=== PATIENT | female | born 1990 | race Caucasian/White ===

== ENCOUNTER → 2016-03-08 | Outpatient (CLI) | payer BC ==
[~2016-03-08] MED LIST: HYDR-5688 PO; NORE1CHW2 PO; OXYC-57 PO; PANT40TA PO; PRENTAB26 PO
[2016-03-08 17:41] LABS: HEMATOCRIT 32.3 % (37-47)
[2016-03-08 18:39] LABS: URINE APPEARANCE CLEAR (CLEAR); URINE BILIRUBIN NEG (NEG); URINE COLOR YELLOW; URINE NITRITE NEG (NEG); UROBILINOGEN NEG (NEG)
[2016-03-08 18:43] LABS: GTGD 50 Grams
[2016-03-08 18:44] LABS: MANUAL MICROSCOPIC REQUIRED? NO; REVIEW REQ? NO
== END | disposition home or self-care (01) ==
LOC: C.LAB1850 16:51
PROVIDERS: ATTEND Obstetrics & Gynecology
DX: O09.293 Supervision of pregnancy with other poor reproductive or obstetric history, third trimester (principal)

== ENCOUNTER 2016-03-19 22:52 | Emergency (ER) | payer BC ==
[~2016-03-19] VITALS: Ht 170.2 cm; Wt 114.1 kg
[~2016-03-19 22:52] MED LIST changes: -HYDR-5688 PO; -NORE1CHW2 PO; -OXYC-57 PO; -PANT40TA PO
[2016-03-19 23:05] VITALS: TEMP 36.8; Ht 170.2 cm; Wt 114.1 kg
[2016-03-19 23:46] LABS: BASO % 0.1 %; BASO ABS # 0.01 K/uL (0-0.2); COMPLETE YES; EOS % 1.4 %; HEMATOCRIT 32.9 % (37-47); IG% 0.9 %; LYMPH % 20.3 %; LYMPH ABS # 1.72 K/uL (1.2-3.4); MEAN CORPUSCULAR HEMOGLOBIN 29.9 pg (25-34); MEAN CORPUSCULAR HGB CONC 34.3 g/dl (32-36); MEAN PLATELET VOLUME 8.8 fL (7.4-10.4); MONO % 8.1 %; NEUT % 69.2 %; PLATELET COUNT 276 K/uL (130-400); RED BLOOD COUNT 3.78 M/uL (4.2-5.4); WHITE BLOOD COUNT 8.49 K/uL (4.8-10.8)
--- NOTE | 2016-03-19 23:53 | EMERGENCY ROOM VISIT NOTE ---
History Report prepared by Michael: Aisha Murcia Under the Supervision of: Dr. Mary Triana D.O. First contact with patient: 23:20 Chief Complaint: FLANK PAIN Stated Complaint: RT SIDED ABD PAIN,30 WKS PREG History of Present Illness The patient is a 25 year old female who presents to the Emergency Room with complaints of constant flank pain beginning last night. The patient states that she is 30 weeks and has experienced this flank pain before off and on but she thought that it was due to the position that the baby was in. She reports that this is her first and she has miscarried once before at 6 weeks. Patient is . She states that she has been seen here in the ED for this pain before and was told that it could be from growing pains and they did not find anything. She complains of nausea when the pain gets bad, pain below her right rib, and slight back pain. She denies urinary symptoms, bowel issues, vomiting, and fever. She notes that the baby's movement has been normal. She rates her pain as a 5/10 now but it was an 8/10 before she came in to the ED. The patient states that she had a glucose test done today but does not have the results yet. Source of History: patient Onset: last night Position: other (flank) Timing: constant Associated Symptoms: + back pain, + nausea, No fevers, No urinary symptoms, No vomiting Note: She complains of pain below her right rib. She denies bowel issues. Review of Systems See HPI for pertinent positives & negatives. A total of 10 systems reviewed and were otherwise negative. Past Medical & Surgical Medical Problems: (1) Miscarriage Family History No pertinent family history stated. Social History Smoking Status: Never Smoker Drug Use: none Marital Status: Housing Status: lives with family Current/Historical Medications Scheduled Multivit/Min/Iron/Fol Ac/Pren ( Vitamin), 1 TAB PO DAILY Allergies Coded Allergies: Amoxicillin (Verified Allergy, Unknown, rash, 03/19/16) Physical Exam Vital Signs Date Time Temp Pulse Resp B/P Pulse Ox O2 Delivery O2 Flow Rate FiO2 03/20/16 01:40 80 18 118/62 99 03/20/16 00:31 87 18 117/87 97 Room Air 03/19/16 23:05 36.8 105 20 147/87 97 Room Air Physical Exam HEENT: Head - normocephalic and atraumatic Pupils are equal, round, and reactive to light. Extraocular eye muscles are intact, and sclera are anicteric. Nose - moist nasal mucosa without discharge. Mouth - moist buccal mucosa. Oropharynx is nonerythematous and there is no tonsillar exudate or edema noted. Neck: Supple; no JVD, nuchal rigidity, cervical lymphadenopathy. Heart: Regular rate and rhythm. There is a normal S1 and S2 with no murmurs, clicks, or gallops appreciated. Lungs: Clear to auscultation bilaterally with no wheezes, rales, or rhonchi. Abdomen: Gravid, completely nontender, with good bowel sounds. There are no palpable pulsatile masses or hepatosplenomegaly. There is no guarding, rigidity , or rebound noted. Back: No CVA tenderness, no flank tenderness. Extremities: No evidence of cyanosis, clubbing, or edema. There are easily palpable peripheral pulses. Skin: warm and dry with good turgor and no rashes. Medical Decision & Procedures Laboratory Results 03/19/16 23:29 Red Blood Count 3.78, Mean Corpuscular Volume 87.0, Mean Corpuscular Hemoglobin 29.9, Mean Corpuscular Hemoglobin Concent 34.3, Mean Platelet Volume 8.8, Neutrophils (%) (Auto) 69.2, Lymphocytes (%) (Auto) 20.3, Monocytes (%) (Auto) 8.1, Eosinophils (%) (Auto) 1.4, Basophils (%) (Auto) 0.1, Neutrophils # (Auto) 5.87, Lymphocytes # (Auto) 1.72, Monocytes # (Auto) 0.69, Eosinophils # (Auto) 0.12, Basophils # (Auto) 0.01 03/19/16 23:29 Test 03/19/16 23:29 03/19/16 23:30 White Blood Count 8.49 K/uL (4.8-10.8) Red Blood Count 3.78 M/uL (4.2-5.4) Hemoglobin 11.3 g/dL (12.0-16.0) Hematocrit 32.9 % (37-47) Mean Corpuscular Volume 87.0 fL (80-100) Mean Corpuscular Hemoglobin 29.9 pg (25-34) Mean Corpuscular Hemoglobin Concent 34.3 g/dl (32-36) Platelet Count 276 K/uL (130-400) Mean Platelet Volume 8.8 fL (7.4-10.4) Neutrophils (%) (Auto) 69.2 % Lymphocytes (%) (Auto) 20.3 % Monocytes (%) (Auto) 8.1 % Eosinophils (%) (Auto) 1.4 % Basophils (%) (Auto) 0.1 % Neutrophils # (Auto) 5.87 K/uL (1.4-6.5) Lymphocytes # (Auto) 1.72 K/uL (1.2-3.4) Monocytes # (Auto) 0.69 K/uL (0.11-0.59) Eosinophils # (Auto) 0.12 K/uL (0-0.5) Basophils # (Auto) 0.01 K/uL (0-0.2) RDW Standard Deviation 43.4 fL (36.4-46.3) RDW Coefficient of Variation 13.7 % (11.5-14.5) Immature Granulocyte % (Auto) 0.9 % Immature Granulocyte # (Auto) 0.08 K/uL (0.00-0.02) Anion Gap 11.0 mmol/L (3-11) Est Creatinine Clear Calc Drug Dose 158.8 ml/min Estimated GFR () 138.6 Estimated GFR (Non- 119.6 BUN/Creatinine Ratio 10.5 (10-20) Calcium Level 9.1 mg/dl (8.5-10.1) Total Bilirubin 0.1 mg/dl (0.2-1) Direct Bilirubin < 0.1 mg/dl (0-0.2) Aspartate Amino Transf (AST/SGOT) 9 U/L (15-37) Alanine Aminotransferase (ALT/SGPT) 17 U/L (12-78) Alkaline Phosphatase 72 U/L (45-117) Total Protein 6.9 gm/dl (6.4-8.2) Albumin 3.0 gm/dl (3.4-5.0) Lipase 120 U/L (73-393) Urine Color YELLOW Urine Appearance CLEAR (CLEAR) Urine pH 6.5 (4.5-7.5) Urine Specific [place] 1.002 (1.000-1.030) Urine Protein NEG (NEG) Urine Glucose (UA) NEG (NEG) Urine Ketones NEG (NEG) Urine Occult Blood NEG (NEG) Urine Nitrite NEG (NEG) Urine Bilirubin NEG (NEG) Urine Urobilinogen NEG (NEG) Urine Leukocyte Esterase TRACE (NEG) Urine WBC (Auto) 10-30 /hpf (0-5) Urine RBC (Auto) 0-4 /hpf (0-4) Urine Hyaline Casts (Auto) 1-5 /lpf (0-5) Urine Epithelial Cells (Auto) 10-20 /lpf (0-5) Urine Bacteria (Auto) 2+ (NEG) Laboratory results per my review. Medications Administered Medications (Trade) Dose Ordered Sig/[place]inton Route Start Time Stop Time Status Last Admin Dose Admin Acetaminophen (Tylenol Tab) 1,000 mg NOW STAT PO 03/20/16 00:49 03/20/16 00:50 DC 03/20/16 00:53 1,000 MG Procedure 0049: Tylenol Tab 1000mg PO. ED Course 2320: Past medical records reviewed. The patient was evaluated in room B10. A complete history and physical exam was performed. 2339: heart tones of 134. 0045: I reevaluated the patient. Her pain is exactly the same as it was when she came in here. I gave her a dose of Tylenol. I sent her urine for culture and will reevaluate her in a half an hour. 0049: Tylenol Tab 1000mg PO. 0028: I reevaluated the patient. She is feeling better. 0034: Upon reevaluation, the patient is hemodynamically stable. I discussed findings and results with the patient. She verbalized agreement of the treatment plan. The patient was discharged home. Medical Decision The patient is a 25 year old female who presents to the ED with flank pain. Differential diagnosis includes gallbladder disease, pyelonephritis, ureteral colic, flank pain, contractions. LABS: Urinalysis has trace leukocyte esterase, 10-30 WBC, 10-20 epithelial cells, 2+ bacteria Normal renal function Normal LFT and lipase Glucose 97 Mild anemia with hemoglobin of 11.3 Normal WBC This is a 25-year-old female patient who is 30 weeks . She presents to the ER with right-sided flank pain. She describes previous history similar to this in the past. She became more concerned tonight because the pain was unrelenting and seemed to be getting worse. Upon arrival in the emergency department, the patient's pain had come down significantly. She describes having a previous ultrasound of her gallbladder for similar symptoms. This was negative. Patient does have some white blood cells and bacteria in the urine but she has no urinary symptoms. There is no blood suggest a kidney stone. The urine will be sent for culture. Patient is comfortable at this time I'll be discharged home to follow up with OB tomorrow. The patient is feeling the baby move around as usual. Impression Primary Impression: Right flank pain Additional Impression: Third trimester Scribe Attestation The scribe's documentation has been prepared under my direction and personally reviewed by me in its entirety. I confirm that the note above accurately reflects all work, treatment, procedures, and medical decision making performed by me. Departure Information Dispostion Home / Self-Care Referrals No Doctor, Assigned (PCP) Forms HOME CARE DOCUMENTATION FORM, IMPORTANT VISIT INFORMATION Patient Instructions ED Flank Pain Uncertain Cause, [facility] Additional Instructions Rest. Take tylenol for pain. Follow up with OB later today or at appt. on Problem Qualifiers
[2016-03-20 00:09] LABS: ALT/SGPT 17 U/L (12-78); AST/SGOT 9 U/L (15-37); BLOOD UREA NITROGEN 7 mg/dl (7-18); BUN/CREATININE RATIO 10.5 (10-20); CALCIUM 9.1 mg/dl (8.5-10.1); CARBON DIOXIDE 23 mmol/L (21-32); CHLORIDE 107 mmol/L (98-107); GLUCOSE 97 mg/dl (70-99); POTASSIUM 3.7 mmol/L (3.5-5.1); SODIUM 141 mmol/L (136-145)
[2016-03-20 00:11] LABS: MANUAL MICROSCOPIC REQUIRED? NO; REVIEW REQ? YES; URINE APPEARANCE CLEAR (CLEAR); URINE BILIRUBIN NEG (NEG); URINE COLOR YELLOW; URINE NITRITE NEG (NEG); URINE PH 6.5 (4.5-7.5); URINE SPECIFIC GRAVITY 1.002 (1.000-1.030); UROBILINOGEN NEG (NEG)
[2016-03-20 00:11] LABS: ALKALINE PHOSPHATASE 72 U/L (45-117)
[2016-03-20] MEDS ORDERED: ACETAMINOPHEN 500 MG TAB PO STA (00:49)
[2016-03-20 01:40] VITALS: BP 118/62; PULSE 80; O2SAT 99
[2016-08-14] MEDS ORDERED: NORE1CHW2 PO (13:50)
== END 2016-03-20 01:43 | disposition home or self-care (01) ==
LOC: C.EDB 22:53
DX: O99.89 Other specified diseases and conditions complicating pregnancy, childbirth and the puerperium (principal); R10.9 Unspecified abdominal pain; Z3A.30 30 weeks gestation of pregnancy; Z88.0 Allergy status to penicillin

== ENCOUNTER → 2016-05-03 | Outpatient (CLI) | payer BC ==
[~2016-05-03] MED LIST changes: +HYDR-5688 PO; +NORE1CHW2 PO; +OXYC-57 PO; +PANT40TA PO
== END | disposition home or self-care (01) ==
LOC: C.LABSPEC 17:24
PROVIDERS: ATTEND Obstetrics & Gynecology
DX: Z34.03 Encounter for supervision of normal first pregnancy, third trimester (principal)

== ENCOUNTER 2016-05-16 08:06 | Outpatient (CLI) | payer BC ==
[~2016-05-16] VITALS: Ht 170.2 cm; Wt 113.6 kg
[~2016-05-16 08:06] MED LIST changes: -HYDR-5688 PO; -NORE1CHW2 PO; -OXYC-57 PO; -PANT40TA PO
[2016-05-16 09:33] VITALS: Ht 170.2 cm; Wt 113.6 kg
[2016-08-14] MEDS ORDERED: NORE1CHW2 PO (13:50)
== END 2016-05-16 10:00 | disposition home or self-care (01) ==
LOC: C.OPB 08:06 → C.LD 08:06 → C.OPB 10:00
PROVIDERS: ATTEND Obstetrics & Gynecology
DX: O32.1XX0 Maternal care for breech presentation, not applicable or unspecified (principal); Z3A.38 38 weeks gestation of pregnancy

== ENCOUNTER 2016-05-25 05:20 | Inpatient (IN) | payer BC ==
[~2016-05-25] VITALS: Ht 170.2 cm; Wt 115.2 kg
[2016-05-25] VITALS (17 sets, daily range): BP systolic 112–143; BP diastolic 74–85; PULSE 84–96; TEMP 36.3–36.8; O2SAT 95–100; Ht 170.2 cm; Wt 115.2 kg
[2016-05-25] MEDS ORDERED: CLINDAMYCIN IV 900 MG in DEXTROSE 5% ADD-VANTAGE 100ML IV SCH (06:00)
[2016-05-25] MEDS: LACTATED RINGER'S 1000ML 1,000 ML IV SCH ×2 (06:09→06:56)
[2016-05-25] MEDS ORDERED: FENTANYL CITRATE INJ 50 MCG/1 ML 2 ML VIAL ONE (06:30)
[2016-05-25] MEDS ORDERED: PHENYLEPHRINE HCL INJ 10 MG/ML VIAL ONE (06:30)
[2016-05-25] MEDS ORDERED: ONDANSETRON INJ 2 MG/ML 2 ML VIAL ONE (06:30)
[2016-05-25] MEDS ORDERED: OXYTOCIN INJ 10 UNITS/ML VIAL ONE ×5 (06:30→08:14)
[2016-05-25] MEDS ORDERED: MoRPHine SULFATE PF 1 MG/ML 10 ML AMP/VIAL ONE (06:30)
[2016-05-25] MEDS ORDERED: EpHEDrine SULFATE INJ 50 MG/ML AMP ONE (06:30)
[2016-05-25] MEDS ORDERED: METOCLOPRAMIDE HCL INJ 5 MG/ML 2 ML VIAL ONE (06:30)
[2016-05-25 06:37] LABS: COMPLETE YES; EOS % 0.9 %; HEMATOCRIT 32.8 % (37-47); IG% 0.8 %; LYMPH % 18.8 %; LYMPH ABS # 1.66 K/uL (1.2-3.4); MEAN CORPUSCULAR HGB CONC 34.5 g/dl (32-36); MEAN PLATELET VOLUME 9.3 fL (7.4-10.4); MONO % 8.8 %; NEUT % 70.7 %; PLATELET COUNT 257 K/uL (130-400); RED BLOOD COUNT 3.77 M/uL (4.2-5.4); WHITE BLOOD COUNT 8.84 K/uL (4.8-10.8)
--- NOTE | 2016-05-25 07:26 | HISTORY & PHYSICAL EXAMINATION ---
DATE OF ADMISSION: 05/25/2016 PREOPERATIVE DIAGNOSIS: Vargas intrauterine in breech presentation. HISTORY OF PRESENT ILLNESS: This is a 25-year-old G2, P0-0-1-0, with the fetus confirmed in the breech presentation on ultrasound this morning, at 39+ weeks' gestation by an EDC of 05/28/2016. Her has been uncomplicated. ALLERGIES: AMOXICILLIN, CATS. CURRENT MEDICATIONS: tablets. OBSTETRIC HISTORY: One spontaneous in the first trimester in 06/2015. MEDICAL HISTORY: Depression for which she has previously taken Lexapro but is currently unmedicated and varicella in childhood. SURGICAL HISTORY: Drums tooth extraction. FAMILY HISTORY: Noncontributory, although of note the patient's mother informs me this morning that the patient herself was a breech delivery. PHYSICAL EXAMINATION: VITAL SIGNS: Reviewed and within normal limits this morning. heart tones 135, moderate variability, accels, and no decels. Cervix is unexamined this morning. [place] is quiet. GENERAL: Alert and in no acute distress. She is seated upright in bed, speaking fluently. HEART: Shows regular rate and rhythm. LUNGS: Clear to auscultation bilaterally. ABDOMEN: Gravid and nontender. EXTREMITIES: Have SCDs in place. ASSESSMENT AND PLAN: This is a 24-year-old G2, P0-0-1-0, for a prime section, anticipated to be low transverse due to breech presentation of fetus.
[2016-05-25] MEDS: CITRIC ACID/SODIUM CITRATE 15 ML UDC PO SCH ×2 (07:28→07:31)
[2016-05-25] MEDS ORDERED: LANOLIN OINT EXT PRN ×2 (08:45)
[2016-05-25] MEDS ORDERED: DIPHTHERIA/TETANUS/PERTUSSIS 0.5 ML SYR/VIAL IM. ONE (08:45)
[2016-05-25] MEDS ORDERED: BENZOCAINE 20% AER SPR 82.5 GM CAN EXT PRN (08:45)
[2016-05-25] MEDS ORDERED: SUPERCREAM 0.870 % 15GM JAR EXT PRN (08:45)
[2016-05-25] MEDS ORDERED: HYDROCORTISONE ACETATE 25 MG SUPP PR PRN (08:45)
--- NOTE | 2016-05-25 08:48 | [facility] Post Operative Brief Note ---
Immediate Operative Summary Operative Date May 25, 2016. Pre-Operative Diagnosis Breech Presentation; Vargas at Term Post-Operative Diagnosis Same Procedure(s) Performed Primary Caesarean Section; Delivery of a live male child at [address] Harrison Paraoptometric Surgeon(s) Dr. Kimbrough Estimated Blood Loss 600 cc Findings normal ovaries and tubes. Yuri breech presentation Specimens cord blood placenta-hold Complication(s) None Disposition L&D
[2016-05-25] MEDS: SIMETHICONE 80 MG CHEW PO SCH ×4 (09:00→20:13)
[2016-05-25] MEDS ORDERED: NALOXONE HCL INJ 1 MG in SODIUM CHLORIDE 0.9% 1000ML 1,000 ML IV PRN ×4 (09:20)
[2016-05-25] MEDS ORDERED: SODIUM CHLORIDE 0.9% 1000ML 1,000 ML IV PRN (09:20)
[2016-05-25] MEDS ORDERED: LACTATED RINGER'S 1000ML 500 ML IV PRN (09:20)
[2016-05-25] MEDS ORDERED: NALOXONE HCL INJ 0.08 MG in SYRINGE 1.8 ML IV PRN (09:20)
--- NOTE | 2016-05-25 09:29 | Anesthesiology Progress Note ---
Anesthesia Post Op Note Date & Time May 25, 2016 at 09:28 Notes Mental Status: alert / awake / arousable, participated in evaluation Pt Amnestic to Procedure: Yes Nausea / Vomiting: adequately controlled Pain: adequately controlled Airway Patency, RR, SpO2: stable & adequate BP & HR: stable & adequate Hydration State: stable & adequate Neuraxial Anesthesia: was administered Anesthetic Complications: no major complications apparent
[2016-05-25] MEDS ORDERED: DiphenhydrAMINE HCL 50 MG/ML VIAL IV PRN (09:30)
[2016-05-25] MEDS ORDERED: NALBUPHINE HCL INJ 10 MG/ML AMP IV PRN (09:30)
[2016-05-25] MEDS ORDERED: ATROPINE SULFATE 0.1 MG/ML 5ML SYR IV PRN (09:30)
[2016-05-25] MEDS ORDERED: NO NARCOTICS OR SEDATIVES SCH (09:30)
[2016-05-25] MEDS ORDERED: ONDANSETRON INJ 2 MG/ML 2 ML VIAL IV PRN ×2 (09:30)
[2016-05-25] MEDS ORDERED: PROMETHAZINE HCL INJ 25 MG in SODIUM CHLORIDE 0.9% 50ML 50 ML IV PRN (09:30)
[2016-05-25] MEDS ORDERED: EpHEDrine SULFATE INJ 50 MG/ML AMP IV PRN ×2 (09:30)
[2016-05-25] MEDS ORDERED: MEPERIDINE HCL 25 MG/ML CARP IV PRN ×2 (09:30)
[2016-05-25] MEDS ORDERED: NALOXONE HCL 0.4 MG/1 ML VIAL/CARP IV PRN (09:30)
[2016-05-25] MEDS ORDERED: METOCLOPRAMIDE HCL INJ 20 MG in SODIUM CHLORIDE 0.9% 50ML 50 ML IV PRN (09:30)
[2016-05-25] MEDS ORDERED: MoRPHine SULFATE PF 1 MG/ML 10 ML AMP/VIAL EPI PRN (09:30)
[2016-05-25] MEDS ORDERED: MoRPHine SULFATE 2 MG/ML CARP IV PRN (09:30)
[2016-05-25] MEDS: KETOROLAC TROMETHAMINE 30 MG/ML VIAL IV. PRN ×2 (10:18→16:54)
--- NOTE | 2016-05-25 11:59 | OPERATIVE REPORT ---
DATE OF OPERATION: 05/25/2016 PREOPERATIVE DIAGNOSIS: Vargas at term with ever breech presentation. POSTOPERATIVE DIAGNOSIS: Same. PROCEDURE: Primary low transverse section. SURGEON: Dr. Harrison. HOMICIDE INVESTIGATOR: PGY1. ESTIMATED BLOOD LOSS: 600 mL. FINDINGS: Normal ovaries and tubes and fetus in ever breech presentation. SPECIMENS: Cord blood and placenta for hold. COMPLICATIONS: None. DISPOSITION: Stable in labor and delivery. DESCRIPTION: Maryanne is a 25-year-old G2, P0-0-1-0, who presented as planned with a at 39+ weeks. She was confirmed to still be in ever breech presentation by ultrasound at the bedside. She was then moved to the operating room, where she was placed in supine position with a leftward tilt, prepped and draped in standard sterile fashion and a hard time-out was taken prior to proceeding. A Pfannenstiel incision was created. This was carried down sharply to the fascia, which was extended using Santana scissors. The fascia was sharply and bluntly dissected off the underlying rectus muscle. It was naturally in the midline and then the peritoneum was bluntly opened using the surgeon's fingers. Bladder blade was introduced. The lower uterine segment was examined and found to be well developed. A transverse incision was then made using a fresh scalpel with final entry to the uterus being made in a blunt manner. Clear fluid was encountered with what appeared to be freshly passed meconium also present at the anal orifice. The legs were delivered one at a time through the hysterotomy. The sacrum was delivered and rotated into an anterior position. The fetus was wrapped with a towel and then gently delivered to the shoulders at which the arms were swept in physiologic fashion and ultimately the was delivered with the head in flexion at all times. The infant was then placed on the sterile field while the cord was doubly clamped and cut. The was then taken to the warmer. The placenta delivered manually and was noted to be intact with a 3-vessel cord. The uterus was gently exteriorized and cleared of all clot and debris using a damp lap sponge. The Allis clamp was then used to identify the angles of the hysterotomy and it was repaired in 2-layer fashion using 0 Vicryl suture in a running locked manner with a second imbricating over layer. The uterus was then moved forward well. Irrigation was used to clear the posterior gutter. The ovaries and tubes were examined and there was noted to be adhesions to the left ovary, otherwise normal anatomy. Uterus was then gently re-internalized. Retractors were used to allow visualization and clearance of the lateral gutters of all clot and debris. The hysterotomy was examined one final time and found to be hemostatic and well approximated. The muscles were allowed to reapproximate and the fascia was then closed using 1-0 Vicryl in a running nonlocked manner. At the completion of which, the fascia was examined and found to be free of defect. Subcutaneous tissue was then copiously irrigated and the skin was closed using 4-0 Monocryl with a Dermabond dressing. The Lee was noted to be draining clear yellow urine and the patient was transferred back to her room to recover where she remains in stable condition. I attest to the content of the Intraoperative Record and any orders documented therein. Any exceptio ns are noted below.
[2016-05-25] MEDS: OXYTOCIN INJ 20 UNITS in LACTATED RINGER'S 1000ML 1,000 ML IV SCH ×2 (12:32→22:27)
[2016-05-25] MEDS: DOCUSATE SODIUM 100 MG CAP PO SCH (20:13)
[2016-05-26] VITALS (8 sets, daily range): BP systolic 113–123; BP diastolic 74–80; PULSE 70–92; TEMP 36.3–36.8; O2SAT 96–97
[2016-05-26] MEDS ORDERED: DC INTRASPINAL MORPHINE SCH (04:00)
[2016-05-26] MEDS ORDERED: OXYCODONE/ACETAMINOPHEN 5-325 TAB PO PRN (04:01)
[2016-05-26] MEDS ORDERED: ONDANSETRON INJ 2 MG/ML 2 ML VIAL IV PRN (04:01)
[2016-05-26] MEDS ORDERED: KETOROLAC TROMETHAMINE 30 MG/ML VIAL IV. PRN (04:01)
[2016-05-26] MEDS: IBUPROFEN 600 MG TAB PO PRN ×3 (04:19→19:43)
[2016-05-26] MEDS: OXYCODONE/ACETAMINOPHEN 5-325 TAB PO PRN ×3 (04:19→19:44)
[2016-05-26 06:38] LABS: COMPLETE YES; EOS % 0.6 %; HEMATOCRIT 30.2 % (37-47); IG% 0.3 %; LYMPH % 12.7 %; LYMPH ABS # 1.11 K/uL (1.2-3.4); MEAN CELL VOLUME 85.3 fL (80-100); MEAN CORPUSCULAR HEMOGLOBIN 29.1 pg (25-34); MEAN CORPUSCULAR HGB CONC 34.1 g/dl (32-36); MONO % 8.1 %; NEUT % 78.3 %; PLATELET COUNT 199 K/uL (130-400); RED BLOOD COUNT 3.54 M/uL (4.2-5.4); WHITE BLOOD COUNT 8.77 K/uL (4.8-10.8)
--- NOTE | 2016-05-26 07:04 | Progress Note ---
Subjective May 26, 2016. Subjective conversation w/ patient, physical exam Ambulation: ambulating normally Voiding: no voiding problems Passing Gas: Yes Diet Tolerance: Regular Diet Lochia: Small Feeding Type: Breast Feeding Review of Systems Constitutional: No chills, No fever Respiratory: No cough, No shortness of breath Cardiac: No chest pain, No claudication Objective Vital Signs Date Time Temp Pulse Resp B/P Pulse Ox O2 Delivery O2 Flow Rate FiO2 05/26/16 04:00 36.7 92 18 120/76 96 Room Air 05/26/16 04:00 18 96 05/26/16 03:01 18 96 05/26/16 02:00 18 96 05/26/16 01:00 18 97 05/26/16 00:20 18 96 05/25/16 23:20 96 Room Air 05/25/16 23:20 18 96 05/25/16 23:20 36.8 87 18 127/82 96 Room Air 05/25/16 22:30 16 97 05/25/16 21:30 18 96 05/25/16 20:30 20 98 05/25/16 19:30 36.5 84 18 128/76 Room Air 84 05/25/16 19:30 97 Room Air 05/25/16 19:30 18 97 05/25/16 18:41 18 96 05/25/16 18:00 20 97 05/25/16 17:00 18 96 05/25/16 16:00 18 97 05/25/16 15:00 36.5 96 20 126/81 98 Room Air 05/25/16 15:00 Room Air 05/25/16 15:00 20 98 05/25/16 14:00 20 95 05/25/16 13:50 36.5 88 18 121/77 98 Room Air 05/25/16 12:55 20 100 05/25/16 12:50 36.5 96 20 143/85 100 Room Air 05/25/16 12:00 18 98 05/25/16 12:00 36.3 90 18 124/77 98 Room Air 05/25/16 11:00 36.8 95 16 112/74 97 Room Air 05/25/16 11:00 16 97 05/25/16 10:50 96 Room Air 05/25/16 10:50 97 Room Air Physical Exam General Appearance: WELL-APPEARING, NO APPARENT DISTRESS Respiratory/Chest: lungs clear, no accessory muscle use Cardiovascular: regular rate, rhythm, no murmur Fundus: Firm, Non-Tender, Relation to Umbilicus (1 cm below) Incision Description: Clean, Dry & Intact Laboratory Results Last 24 Hours Test 05/26/16 06:05 White Blood Count 8.77 K/uL Red Blood Count 3.54 M/uL Hemoglobin 10.3 g/dL Hematocrit 30.2 % Mean Corpuscular Volume 85.3 fL Mean Corpuscular Hemoglobin 29.1 pg Mean Corpuscular Hemoglobin Concent 34.1 g/dl Platelet Count 199 K/uL Mean Platelet Volume 9.0 fL Neutrophils (%) (Auto) 78.3 % Lymphocytes (%) (Auto) 12.7 % Monocytes (%) (Auto) 8.1 % Eosinophils (%) (Auto) 0.6 % Basophils (%) (Auto) 0.0 % Neutrophils # (Auto) 6.87 K/uL Lymphocytes # (Auto) 1.11 K/uL Monocytes # (Auto) 0.71 K/uL Eosinophils # (Auto) 0.05 K/uL Basophils # (Auto) 0.00 K/uL RDW Standard Deviation 42.8 fL RDW Coefficient of Variation 13.8 % Immature Granulocyte % (Auto) 0.3 % Immature Granulocyte # (Auto) 0.03 K/uL Assessment and Plan Problem List Medical Problems: (1) Acute right flank pain Status: Acute (2) Right flank pain Status: Acute (3) Third trimester Status: Acute (4) Third trimester at less than 36 weeks Status: Acute Post-Op Day#: 1 Continue Routine Care: s/p Day 1 - vitals reviewed and wnl - Hgb 10.3 today - blood: O+, rubella immune, GBS - - estrada removed and patient transitioned to regular diet - patient doing well clinically - encourage ambulation, encourage breast feeding and monitor lochia - CONTINUE ROUTINE POST C SECTION CARE Resident Physician Supervision Note: I interviewed and examined the patient. Discussed with Dr. Kimbrough and agree with findings and plan as documented in the note. Any exceptions or clarifications are listed here: [None] Documented By: Maryanne Harrison
[2016-05-26] MEDS: DOCUSATE SODIUM 100 MG CAP PO SCH ×2 (08:01→19:42)
[2016-05-26] MEDS: SIMETHICONE 80 MG CHEW PO SCH ×4 (08:01→19:43)
[2016-05-26] MEDS: PRENATAL VITAMIN TAB PO SCH (08:02)
[2016-05-27] MEDS: SIMETHICONE 80 MG CHEW PO SCH ×4 (07:36→19:43)
[2016-05-27] MEDS: DOCUSATE SODIUM 100 MG CAP PO SCH ×2 (07:36→19:42)
[2016-05-27] MEDS: PRENATAL VITAMIN TAB PO SCH (07:36)
[2016-05-27] MEDS: IBUPROFEN 600 MG TAB PO PRN ×3 (07:37→23:23)
[2016-05-27 07:45] VITALS: BP 123/76; PULSE 83; TEMP 36.4
--- NOTE | 2016-05-27 08:14 | Progress Note ---
Subjective May 27, 2016. Subjective conversation w/ patient Ambulation: ambulating normally Voiding: no voiding problems Passing Gas: Yes Diet Tolerance: Regular Diet Lochia: Moderate Feeding Type: Breast Feeding Pain: controlled Review of Systems Constitutional: No problem reported Respiratory: No problem reported Cardiac: No problem reported Breast: No problem reported Abdomen: No problem reported Female : No problem reported Objective Vital Signs Date Time Temp Pulse Resp B/P Pulse Ox O2 Delivery O2 Flow Rate FiO2 05/26/16 23:30 36.3 88 20 123/80 Room Air 05/26/16 23:30 Room Air 05/26/16 16:15 Room Air 05/26/16 16:15 36.8 83 20 115/77 Room Air Physical Exam General Appearance: WELL-APPEARING, NO APPARENT DISTRESS Respiratory/Chest: no respiratory distress Cardiovascular: regular rate, rhythm Abdomen: non tender, soft Fundus: Firm Incision Description: Clean, Dry & Intact Extremities: normal inspection Assessment and Plan Problem List Medical Problems: (1) Acute right flank pain Status: Acute (2) Right flank pain Status: Acute (3) Third trimester Status: Acute (4) Third trimester at less than 36 weeks Status: Acute Post-Op Day#: 2 Continue Routine Care: POD#2 PLTCS breech Doing well, requesting to stay until POD3
[2016-05-27 15:30] VITALS: BP 122/81; PULSE 71; TEMP 36.7
[2016-05-27 23:15] VITALS: BP 117/72; PULSE 71; TEMP 36.4
--- NOTE | 2016-05-28 08:05 | Progress Note ---
Subjective May 28, 2016. Subjective conversation w/ patient, physical exam Ambulation: ambulating normally Voiding: no voiding problems Passing Gas: Yes Diet Tolerance: Regular Diet Lochia: Small Feeding Type: Breast Feeding Review of Systems Constitutional: No chills, No fever Respiratory: No cough, No shortness of breath Cardiac: No chest pain, No claudication Abdomen: No nausea, No pain, No vomiting Objective Vital Signs Date Time Temp Pulse Resp B/P Pulse Ox O2 Delivery O2 Flow Rate FiO2 05/27/16 23:15 36.4 71 18 117/72 Room Air 05/27/16 23:15 Room Air 05/27/16 15:30 Room Air 05/27/16 15:30 36.7 71 20 122/81 Room Air Physical Exam General Appearance: WELL-APPEARING, NO APPARENT DISTRESS Respiratory/Chest: lungs clear, no accessory muscle use Cardiovascular: regular rate, rhythm, no murmur Fundus: Firm, Non-Tender, Relation to Umbilicus (at umbilicus) Incision Description: Clean, Dry & Intact Extremities: non-tender, no calf tenderness Assessment and Plan Problem List Medical Problems: (1) Acute right flank pain Status: Acute (2) Right flank pain Status: Acute (3) Third trimester Status: Acute (4) Third trimester at less than 36 weeks Status: Acute Post-Op Day#: 3 Continue Routine Care: s/p C section day 3 - vitals reviewed and wnl - blood: O+, Rubella immune, GBS- - encourage ambulation, encourage , monitor lochia - patient doing well clinically - patient counselled on discharge instructions - PATIENT TO BE DISCHARGED TODAY Resident Physician Supervision Note: I interviewed and examined the patient. Discussed with Dr. Kimbrough and agree with findings and plan as documented in the note. Any exceptions or clarifications are listed here: Doing well. Plan d/c home. Instuctions given. Documented By: Haleigh Vays
[2016-05-28] MEDS: PRENATAL VITAMIN TAB PO SCH (08:14)
[2016-05-28] MEDS: DOCUSATE SODIUM 100 MG CAP PO SCH (08:14)
[2016-05-28] MEDS: SIMETHICONE 80 MG CHEW PO SCH (08:14)
[2016-05-28] MEDS: IBUPROFEN 600 MG TAB PO PRN (08:15)
[2016-05-28 08:20] VITALS: BP 152/87; PULSE 71; TEMP 36.7
--- NOTE | 2016-05-28 08:25 | Discharge Instructions ---
Discharge Instructions Date of Service May 28, 2016. Admission Reason for Admission: Breech Discharge Discharge Diagnosis / Problem: C- Section Discharge Goals Goal(s): Routine recovery after Medications Continue Dispensed Medications: supercream, dermaplast, tucks, lansinoh Activity Recommendations Activity Limitations: per Instructions/Follow-up section . Instructions / Follow-Up Instructions / Follow-Up ACTIVITY RECOMMENDATIONS: * Gradual return to full activity over the next 2-3 weeks. * No lifting - nothing heavier than baby over the next 2-3 weeks. * Do not engage in vigorous exercise, sexual activity or sports until cleared by your physician. * Do not drive or operate any motorized equipment until cleared by your physician. * You may shower/bathe daily. MEDICATIONS: For discomfort or pain, you may use Acetaminophen (Tylenol), Ibuprofen (Advil), or Naproxen (Aleve) following the package directions. For constipation you may use Colace following the package directions. BREAST CARE: If you are not breast feeding: * Wear a supportive bra 24 hours a day for one to two weeks. * Avoid stimulating your breasts and nipples as much as possible during the first few weeks after delivery. * When taking a shower, have the warm water hit your back, not breasts. * When your breasts feel full, apply ice packs. Usually three to four times a day helps ease the discomfort. * Take a mild pain medication (Tylenol / Motrin) when you are uncomfortable. If breast feeding: * Use breast milk to lubricate nipples. Lansinoh cream may be used for sore nipples. You do not need to remove cream prior to breast feeding. If using a different brand of cream, check the label for directions regarding removal of cream prior to nursing. * Wear a supportive bra. * If having problems with breasts or breast feeding, call a sap ppm consultant or your health care provider. EPISIOTOMY CARE: After delivery, if you have an episiotomy (stitches), the following steps will ease discomfort and aid healing. * For the first 24 hours after delivery, place ice packs next to your episiotomy to help reduce swelling. * After the first 24 hour-period, sitz baths, either portable or in the tub, are suggested. A shower with a shower arm sprayed over the episiotomy may be comforting. * Ruchi care should be done after each voiding and bowel movement. Squirt warm water from a plastic bottle over the perineum (region of the body between the anus and urinary opening) and pat dry. * Use Dermoplast to ease discomfort. Shake container. [place] directly over the episiotomy. Place a Tucks on a clean sanitary pad next to your episiotomy. SPECIAL CARE INSTRUCTIONS: When you are discharged from the hospital, it is important for you to follow the instructions listed below: * During the first week at home, you should be able to care for yourself and your baby. In addition, the usual light household activities are encouraged. * Limit your activities to the way you feel. Do not try to clean the house or move furniture. Be sensible. * If you actively engage in sports and have done so up until the time of your delivery, you may resume these activities as soon as you feel able. This may take up to one month or even longer. Use good judgment. * Continue to take your vitamins for at least six weeks after the of your baby. * Your diet need not be limited unless you were on a special diet before your delivery. Breast-feeding mothers need around 2500 calories per day and at least 64-80 ounces of fluid per day (8 to 10 glasses). * You should eat foods from the four major food groups. Crash diets or fad diets are to be avoided. Eating lean meats, fresh fruits and vegetables, low-fat dairy products, high fiber foods and a regular exercise program, will help you get back to your pre- weight without putting your health at risk. * Constipation is sometimes a problem after delivery. Take a mild laxative as needed. If breast feeding, Milk of Magnesia is acceptable to use. You may use a suppository or Fleets enema if no episiotomy. * A daily shower or tub bath is suggested. Be sure to thoroughly and gently dry the perineum. * A bloody vaginal discharge will usually continue until around four weeks post . A small amount of bleeding may continue for as long as six weeks. Vaginal discharge changes from the bright red bleeding after delivery to pink then brownish and finally yellowish-pink before becoming white and disappearing. * Bleeding may increase with activity. Your first period may come in 4-8 weeks. If you are breast feeding, your period may be delayed even longer. * [place] (sex) can begin whenever both you and your partner feel comfortable and do not have any form of genital infection. It is recommended that you wait at least six weeks for internal and external healing to occur. If you have questions, please talk to your health care practitioner. A condom should be used to prevent infection and . * Foreplay, gentle intercourse and lubrication is very important the first several times to prevent pain. A water-based lubricant such as K-Y jelly or Astroglide may be used. * If you have RH negative blood and your baby is RH positive, you will receive RHOGAM by injection prior to discharge. The nurse will give you a card to keep with you that has the date and place that you received RHOGAM after delivery. * During your care, you had a Rubella screen done to check for the presence of rubella antibodies in your blood. If your test was negative, you will receive a Rubella vaccine prior to discharge. This vaccine may cause a fever, soreness at the injection site and flu-like symptoms. If these symptoms persist, notify your health care practitioner. is not advised for one month after a Rubella vaccine. * Verbalizes understanding of car seat law as reviewed with patient nursing. * Car Seat hand-out given and reviewed with patient by nursing. * Shaken baby information reviewed with patient by nursing. Call you doctor if: * Heavy bleeding (saturating several pads an hour) or passing clots the size of your fist. * A fever >101 degrees F (38.3 degrees C) on two occasions four hours apart and /or chills. * Unusual pain in the pelvic or vaginal areas. * "Baby Blues" lasting longer than two weeks. If you have any questions or concerns, call your health care practitioner at . FOLLOW UP VISIT: * Please call the office at to schedule a 6 week examination. It is important you keep this appointment. It is important for you to make arrangements for either yearly or twice yearly check-ups thereafter. Current Hospital Diet Patient's current hospital diet: Regular OB Diet Discharge Diet Recommended Diet: Regular Diet Procedures Procedures Performed: Primary Caesarean Section; Delivery of a live male child at 0804 Pending Studies Studies pending at discharge: no Medical Emergencies . Who to Call and When: Medical Emergencies: If at any time you feel your situation is an emergency, please call 911 immediately. . Non-Emergent Contact Non-Emergency issues call your: Primary Care Provider, Postal Support Employee . . "Provider Documentation" section prepared by Nate Kimbrough. VTE Core Measure Inpt VTE Proph given/why not?: Treatment not indicated
[2016-05-28] MEDS ORDERED: OXYC-57 PO (08:56)
[2016-05-28 12:00] VITALS: BP_DIAS 87; PULSE 71; TEMP 36.7
--- NOTE | 2016-06-07 14:42 | DISCHARGE SUMMARY ---
COURSE OF CARE: Maryanne is a 25-year-old G2, P0-0-1-0 who presented for a primary low transverse section due to a frazier intrauterine at breech position at 39+ weeks. Her section was uncomplicated. Please see operative report for details. Her postop course was notable for a hemoglobin of 10.3 from a preop of 11.3. Vital signs which remained normal for the vast majority of her recovery and a typical clinical course with ability to tolerate regular diet, oral pain medication, to ambulate and to void and stool normally. The patient was discharged on the with medications including 10 tablets of Percocet and instructions to follow up at the usual 6-week interval.
[2016-08-14] MEDS ORDERED: NORE1CHW2 PO (13:50)
== END 2016-05-28 12:30 | disposition home or self-care (01) | DRG 766 ==
LOC: C.LD 05:20 → EDSTATUS 09:00 → C.OBG 11:34
PROVIDERS: ADMIT Obstetrics & Gynecology; ATTEND Obstetrics & Gynecology
PROC: 10D00Z1 Extraction of Products of Conception, Low, Open Approach (ICD-10-PCS; principal; 2016-05-25 07:30)
DX: O32.1XX0 Maternal care for breech presentation, not applicable or unspecified (principal); O77.0 Labor and delivery complicated by meconium in amniotic fluid; O99.214 Obesity complicating childbirth; E66.9 Obesity, unspecified; Z68.39 Body mass index [BMI] 39.0-39.9, adult; Z37.0 Single live birth; Z3A.39 39 weeks gestation of pregnancy

== ENCOUNTER 2016-06-26 01:47 | Emergency (ER) | payer BC ==
[~2016-06-26] VITALS: Ht 170.2 cm; Wt 104.1 kg
[~2016-06-26 01:47] MED LIST changes: +OXYC-57 PO
[2016-06-26 01:52] VITALS: TEMP 36.5; Ht 170.2 cm; Wt 104.1 kg
[2016-06-26] MEDS ORDERED: ONDANSETRON INJ 2 MG/ML 2 ML VIAL IV STA (02:09)
[2016-06-26] MEDS ORDERED: MoRPHine SULFATE 4 MG/ML 1 ML CARP\\VIAL IV ONE (02:15)
[2016-06-26] MEDS ORDERED: SODIUM CHLORIDE 0.9% 1000ML 1,000 ML IV ONE (02:15)
[2016-06-26] MEDS ORDERED: PANTOprazole INJ 40 MG in SYRINGE 0 ML IV ONE (02:15)
[2016-06-26] MEDS ORDERED: GI COCKTAIL PO ONE (02:15)
[2016-06-26] MEDS ORDERED: ALUMINUM/MAGNESIUM SUSP 30 ML UDC ONE (02:20)
[2016-06-26] MEDS ORDERED: LIDOCAINE HCL 2% VISC SOLN 20 ML UDC ONE (02:20)
[2016-06-26 02:28] LABS: BASO % 0.1 %; BASO ABS # 0.01 K/uL (0-0.2); COMPLETE YES; EOS % 3.3 %; HEMATOCRIT 36.4 % (37-47); IG% 0.4 %; LYMPH % 18.4 %; LYMPH ABS # 1.66 K/uL (1.2-3.4); MEAN CELL VOLUME 85.4 fL (80-100); MEAN CORPUSCULAR HEMOGLOBIN 28.6 pg (25-34); MEAN CORPUSCULAR HGB CONC 33.5 g/dl (32-36); MEAN PLATELET VOLUME 8.8 fL (7.4-10.4); MONO % 5.3 %; NEUT % 72.5 %; PLATELET COUNT 236 K/uL (130-400); RED BLOOD COUNT 4.26 M/uL (4.2-5.4); WHITE BLOOD COUNT 9.04 K/uL (4.8-10.8)
[2016-06-26 02:46] LABS: BUN/CREATININE RATIO 12.7 (10-20); CREATININE 1.1 mg/dl (0.60-1.20); POTASSIUM 3.7 mmol/L (3.5-5.1)
[2016-06-26 02:49] LABS: ALB/GLOB RATIO 0.9 (0.9-2)
[2016-06-26 03:45] LABS: URINE APPEARANCE CLEAR (CLEAR); URINE BILIRUBIN NEG (NEG); URINE COLOR YELLOW; URINE NITRITE NEG (NEG); URINE SPECIFIC GRAVITY 1.011 (1.000-1.030); UROBILINOGEN NEG (NEG); ZZUR CULT IF INDIC CLEAN CATCH NO
[2016-06-26 03:47] LABS: MANUAL MICROSCOPIC REQUIRED? NO; REVIEW REQ? NO
[2016-06-26] MEDS ORDERED: PANT40TA PO (04:40)
[2016-06-26 04:46] VITALS: BP 109/52; PULSE 63; O2SAT 98
--- NOTE | 2016-06-26 05:19 | EMERGENCY ROOM VISIT NOTE ---
History First contact with patient: 01:54 Chief Complaint: ABDOMINAL PAIN Stated Complaint: ABDOMINAL PAIN Nursing Triage Summary: Pt reports upper abdominal pain with nausea that started around 9pm. Pt had c section about one month prior. History of Present Illness The patient is a 25 year old female who presents to the Emergency Room with complaints of epigastric abdominal pain that began about 5 hours prior to arrival. The patient states that she has had similar symptoms off and on for the past few months. She recently underwent section about one month ago and has been healing well since the procedure. She does not report fevers, chills, chest pain, chest tightness, or shortness of breath. Her pain does not radiate. She will have lower abdominal discomfort or incisional discomfort. No vaginal drainage or discharge, or bleeding. She has been eating and drinking as normal. No recent travel history. She describes her pain as a sharp and 7/10 pain. She has not taken anything [id number] for her symptoms Review of Systems More than 10 systems were reviewed and otherwise negative with the exception of history of present illness. Past Medical/Surgical History Medical Problems: (1) Abdominal pain during (2) Complete breech presentation Surgical Problems: (1) Miscarriage Family History No pertinent family history Social History Smoking Status: Never Smoker Drug Use: none Marital Status: Housing Status: lives with family Current/Historical Medications Scheduled Multivit/Min/Iron/Fol Ac/Pren ( Vitamin), 1 TAB PO DAILY Pantoprazole (Protonix), 40 MG PO DAILY Allergies Coded Allergies: Amoxicillin (Verified Allergy, Unknown, rash, 05/26/16) Physical Exam Vital Signs Date Time Temp Pulse Resp B/P Pulse Ox O2 Delivery O2 Flow Rate FiO2 06/26/16 04:46 63 18 109/52 98 06/26/16 03:15 66 18 105/41 98 Room Air 06/26/16 01:52 36.5 79 19 132/77 97 Room Air Pain Rating (0-10): 0 Physical Exam VITALS: Vitals are noted on the nurse's note and reviewed by myself. Vital signs stable. GENERAL: Well-developed, well-nourished, white female, who is in no acute distress and resting comfortably. Patient is cooperative with the examination. HEAD: Normocephalic atraumatic. HEART: Regular rate and rhythm without murmurs gallops or rubs. LUNGS: Clear to auscultation bilaterally without wheezes, rales or rhonchi. No retractions or accessory muscle use. ABDOMEN: Positive normal bowel sounds x 4. Soft with mild epigastric tenderness on palpation. No rebound or guarding. No lower abdominal tenderness. No CVA tenderness. NEURO: Patient was alert and oriented to person place and time. CN II through XII grossly intact. Medical Decision & Procedures ER Provider Diagnostic Interpretation: Preliminary Findings Only See Final Report For Complete Findings US RUQ: Comparison: US dated 12/17/2015. Gallstones and sludge. No gallbladder wall thickening or pericholecystic fluid. No biliary dilation. Enlarged fatty liver. Laboratory Results 06/26/16 02:15 Red Blood Count 4.26, Mean Corpuscular Volume 85.4, Mean Corpuscular Hemoglobin 28.6, Mean Corpuscular Hemoglobin Concent 33.5, Mean Platelet Volume 8.8, Neutrophils (%) (Auto) 72.5, Lymphocytes (%) (Auto) 18.4, Monocytes (%) (Auto) 5.3, Eosinophils (%) (Auto) 3.3, Basophils (%) (Auto) 0.1, Neutrophils # (Auto) 6.55, Lymphocytes # (Auto) 1.66, Monocytes # (Auto) 0.48, Eosinophils # (Auto) 0.30, Basophils # (Auto) 0.01 06/26/16 02:15 Test 06/26/16 02:15 06/26/16 03:30 White Blood Count 9.04 K/uL (4.8-10.8) Red Blood Count 4.26 M/uL (4.2-5.4) Hemoglobin 12.2 g/dL (12.0-16.0) Hematocrit 36.4 % (37-47) Mean Corpuscular Volume 85.4 fL (80-100) Mean Corpuscular Hemoglobin 28.6 pg (25-34) Mean Corpuscular Hemoglobin Concent 33.5 g/dl (32-36) Platelet Count 236 K/uL (130-400) Mean Platelet Volume 8.8 fL (7.4-10.4) Neutrophils (%) (Auto) 72.5 % Lymphocytes (%) (Auto) 18.4 % Monocytes (%) (Auto) 5.3 % Eosinophils (%) (Auto) 3.3 % Basophils (%) (Auto) 0.1 % Neutrophils # (Auto) 6.55 K/uL (1.4-6.5) Lymphocytes # (Auto) 1.66 K/uL (1.2-3.4) Monocytes # (Auto) 0.48 K/uL (0.11-0.59) Eosinophils # (Auto) 0.30 K/uL (0-0.5) Basophils # (Auto) 0.01 K/uL (0-0.2) RDW Standard Deviation 40.3 fL (36.4-46.3) RDW Coefficient of Variation 12.9 % (11.5-14.5) Immature Granulocyte % (Auto) 0.4 % Immature Granulocyte # (Auto) 0.04 K/uL (0.00-0.02) Anion Gap 6.0 mmol/L (3-11) Est Creatinine Clear Calc Drug Dose 96.2 ml/min Estimated GFR () 80.2 Estimated GFR (Non- 69.2 BUN/Creatinine Ratio 12.7 (10-20) Calcium Level 9.0 mg/dl (8.5-10.1) Total Bilirubin 0.2 mg/dl (0.2-1) Aspartate Amino Transf (AST/SGOT) 11 U/L (15-37) Alanine Aminotransferase (ALT/SGPT) 28 U/L (12-78) Alkaline Phosphatase 88 U/L (45-117) Total Protein 6.6 gm/dl (6.4-8.2) Albumin 3.2 gm/dl (3.4-5.0) Globulin 3.4 gm/dl (2.5-4.0) Albumin/Globulin Ratio 0.9 (0.9-2) Lipase 153 U/L (73-393) Urine Color YELLOW Urine Appearance CLEAR (CLEAR) Urine pH 6.0 (4.5-7.5) Urine Specific [place] 1.011 (1.000-1.030) Urine Protein NEG (NEG) Urine Glucose (UA) NEG (NEG) Urine Ketones NEG (NEG) Urine Occult Blood NEG (NEG) Urine Nitrite NEG (NEG) Urine Bilirubin NEG (NEG) Urine Urobilinogen NEG (NEG) Urine Leukocyte Esterase NEG (NEG) Medications Administered Medications (Trade) Dose Ordered Sig/[place] Route Start Time Stop Time Status Last Admin Dose Admin Sodium Chloride (Nss 1000ml) 1,000 ml @ 999 mls/hr Q1H1M ONCE IV 06/26/16 02:15 06/26/16 03:15 DC 06/26/16 02:18 999 MLS/HR Morphine Sulfate (MoRPHine SULFATE INJ) 4 mg NOW ONCE IV 06/26/16 02:15 06/26/16 02:16 DC 06/26/16 02:18 4 MG Ondansetron HCl 4 mg 4 mg NOW STAT IV 06/26/16 02:09 06/26/16 02:11 DC 06/26/16 02:17 4 MG Pantoprazole Sodium/Syringe (Protonix Inj/ Syringe) 10 ml @ 5 mls/min NOW ONCE IV 06/26/16 02:15 06/26/16 02:16 DC 06/26/16 02:21 5 MLS/MIN Al Hydroxide/Mg Hydroxide (Maalox Susp) 30 ml STK-MED ONCE .ROUTE 06/26/16 02:20 06/26/16 02:21 DC 06/26/16 02:18 30 ML Lidocaine HCl (Viscous Lidocaine 2% Soln) 20 ml STK-MED ONCE .ROUTE 06/26/16 02:20 06/26/16 02:21 DC 06/26/16 02:18 10 ML ED Course Physical exam and history were performed. Nursing notes and EMR were reviewed. Patient appears to have epigastric abdominal pain for the past several hours. The patient does have some tenderness in this region. IV access was established and labs were obtained. The patient was hydrated and medicated as above. X-rays and ultrasound were ordered. The patient's blood work is as above and was reviewed. She does not have a significantly elevated white blood cell count, gross anemia, bandemia, or significant electrolyte imbalance. Lipase and transaminases are nondiagnostic. Urine is without obvious signs of infection. X-ray does not show acute process and ultrasound was negative for biliary etiology. Overall the patient does appear stable for discharge home. She is felt to have a gastritis or possible GERD. Her symptoms may be food borne or viral in nature , but evidently she has had this for some time intermittently. I will give her a prescription for Protonix. She will also be given information to follow with GI, as she may benefit from an upper endoscopy. The patient was otherwise asked to follow with her PCP and was invited back to the ER with any new, worsening, or concerning symptoms. She voiced understanding and rated her discomfort a 0/10 at the time of departure. The chart was completed utilizing [employer] Speech Voice Recognition Software. Grammatical errors, random word insertions, pronoun errors, and incomplete sentences are an occasional consequence of this system due to software limitations, ambient noise, and hardware issues. Any formal questions or concerns about the content, text, or information contained within the body of this dictation should be directly addressed to the provider for clarification. . Medical Decision Differential diagnosis: Etiologies such as appendicitis, diverticulitis, PUD, biliary pathology, UTI, pancreatitis, obstruction, mesenteric ischemia, aortic pathology, infections, inflammatory bowel disease, renal colic, as well as others were entertained. Impression Primary Impression: Epigastric abdominal pain Departure Information Dispostion Home / Self-Care Condition GOOD Prescriptions Pantoprazole (Protonix) 40 Mg Tab 40 MG PO DAILY for 14 Days, #14 TAB Prov: Solomon Orr PA-C 06/26/16 Referrals Jamison Duffy MD Forms HOME CARE DOCUMENTATION FORM, IMPORTANT VISIT INFORMATION Patient Instructions My [facility] Additional Instructions You were seen and evaluated today on an emergency basis only. This is not a substitute for, or an effort to provide, complete comprehensive medical care. It is not possible to recognize and treat all injuries or illnesses in a single emergency department visit. For this reason it is recommended that you followup with Gastroenterology, Dr. Duffy's office, for ongoing care and evaluation. Call to make an appointment. Take Protonix 40 mg daily for the next 2 weeks. You are welcome to return to the emergency department anytime with new, worsening, or concerning symptoms.
--- NOTE | 2016-06-26 06:48 | DIAGNOSTIC IMAGING REPORT ---
BILIARY ULTRASOUND CLINICAL HISTORY: Epigastric abdominal pain COMPARISON STUDY: 12/17/2015 FINDINGS: The pancreas appears sonographically normal. No focal hepatic masses are visualized. There are multiple gallstones present. There is no gallbladder wall thickening and no evidence of pericholecystic fluid. There is no ductal dilatation. The common buttock measures 4 mm. There is no right-sided hydronephrosis. The liver is of increased echogenicity. This is a nonspecific finding often seen in hepatic steatosis IMPRESSION: 1. Cholelithiasis. No evidence of ductal dilatation. Electronically signed by: Mat Gillette M.D. 06/26/2016 6:45 AM Dictated Date/Time: 06/26/2016 6:43 AM
--- NOTE | 2016-06-26 07:25 | DIAGNOSTIC IMAGING REPORT ---
CHEST AND ABDOMEN 2 VIEWS HISTORY: Epigastric abd pain COMPARISON: None. FINDINGS: The lungs are clear. The cardiomediastinal silhouette is within normal limits. There is no pneumoperitoneum or pneumatosis. The bowel gas pattern is unremarkable. No evidence for bowel obstruction. No pathologic calcifications. IMPRESSION: No acute cardiopulmonary process. No evidence for bowel obstruction. Electronically signed by: Huan Alcantar M.D. 06/26/2016 7:23 AM Dictated Date/Time: 06/26/2016 7:21 AM
[2016-08-14] MEDS ORDERED: NORE1CHW2 PO (13:50)
== END 2016-06-26 04:47 | disposition home or self-care (01) ==
LOC: C.EDB 01:48
DX: R10.13 Epigastric pain (principal)

== ENCOUNTER → 2016-07-05 | Outpatient (CLI) | payer BC ==
[~2016-07-05] MED LIST changes: +HYDR-5688 PO; +NORE1CHW2 PO; -OXYC-57 PO; +PANT40TA PO
== END | disposition home or self-care (01) ==
LOC: C.PAPS 12:02
PROVIDERS: ATTEND Obstetrics & Gynecology
DX: Z01.419 Encounter for gynecological examination (general) (routine) without abnormal findings (principal)

== ENCOUNTER → 2016-08-10 | Outpatient (CLI) | payer BC ==
[~2016-08-10] MED LIST changes: -PANT40TA PO
--- NOTE | 2016-08-10 15:41 | DIAGNOSTIC IMAGING REPORT ---
NUCLEAR HEPATOBILIARY SCAN CLINICAL HISTORY: Epigastric abdominal pain. COMPARISON STUDY: Abdominal ultrasound dated 06/26/2016. TECHNIQUE: Dynamic images of the liver and anterior abdomen were obtained every 5 minutes for a total of 60 minutes following the IV administration of 5.3mCi of technetium 99m Choletec. The gallbladder was not visualized at 60 minutes. 4 hour delayed imaging was then performed. The patient was unable to receive morphine. FINDINGS: The hepatobiliary scan shows prompt and homogeneous hepatic uptake. There is visualized activity within the intra and extrahepatic biliary tree at 10 minutes. There is normal biliary to bowel transit, with small bowel visualized by 20 minutes. The gallbladder was not visualized at 60 minutes. The gallbladder was also not seen on the 4 hour delayed imaging. IMPRESSION: Scintigraphic findings are consistent with acute cholecystitis. Surgical consultation is advised. Electronically signed by: Mehdi Francisco M.D. 08/10/2016 3:39 PM Dictated Date/Time: 08/10/2016 3:33 PM
== END | disposition home or self-care (01) ==
LOC: C.NUCL 10:12
PROVIDERS: ATTEND Family Medicine
DX: R10.13 Epigastric pain (principal)

== ENCOUNTER 2016-08-21 09:06 | Day surgery (SDC) | payer BC ==
[2016-08-16 08:39] VITALS: Ht 170.2 cm; Wt 106.4 kg
[~2016-08-21] VITALS: Ht 170.2 cm; Wt 106.4 kg
[~2016-08-21 09:06] MED LIST changes: +ATROPINE SULFATE 0.1 MG/ML 5ML SYR IV PRN; +CIPROFLOXACIN / D5W 400 MG IV SCH; +EpHEDrine SULFATE INJ 50 MG/ML AMP IV PRN; -HYDR-5688 PO; +HYDROmorphone INJ 1 MG/ML SYR IV PRN; +LACTATED RINGER'S 1000ML 1,000 ML IV SCH; +LACTATED RINGER'S 1000ML 500 ML IV ONE; +ONDANSETRON INJ 2 MG/ML 2 ML VIAL IV PRN; -PRENTAB26 PO
[2016-08-21 09:29] VITALS: BP 111/59; PULSE 110; TEMP 36.7; O2SAT 97
[2016-08-21] MEDS ORDERED: SCOPOLAMINE 1.5 MG TDSY TD ONE (09:35)
[2016-08-21] MEDS ORDERED: SCOPOLAMINE 1.5 MG TDSY TD STA (09:40)
[2016-08-21] MEDS ORDERED: ATROPINE SULFATE 0.1 MG/ML 5ML SYR IV PRN (09:45)
[2016-08-21] MEDS ORDERED: HYDROmorphone INJ 1 MG/ML SYR IV PRN (09:45)
[2016-08-21] MEDS ORDERED: FENTANYL CITRATE INJ 50 MCG/1 ML 2 ML VIAL IV PRN (09:45)
[2016-08-21] MEDS ORDERED: EpHEDrine SULFATE INJ 50 MG/ML AMP IV PRN (09:45)
[2016-08-21] MEDS ORDERED: ONDANSETRON INJ 2 MG/ML 2 ML VIAL IV PRN ×2 (09:45→11:45)
--- NOTE | 2016-08-21 10:17 | History & Physical Bridge Note ---
H&P Re-Evaluation Bridge Note: I have examined the patient, reviewed the History & Physical and in the interval since the performance of the History & Physical I have noted the following changes of clinical significance: No changes noted
[2016-08-21] MEDS ORDERED: HYDR-5688 PO (10:22)
--- NOTE | 2016-08-21 10:24 | Discharge Instructions ---
Discharge Instructions Date of Service Aug 21, 2016. Admission Reason for Admission: Calculus Of Gallbladder W/Chronic Cholecystitis Discharge Discharge Diagnosis / Problem: Calculus of Gallbladder with Chronic Cholecystitis Discharge Goals Goal(s): Decrease discomfort, Improve function Activity Recommendations Activity Limitations: as noted below Lifting Limitations: no more than 10 pounds Exercise/Sports Limitations: until after follow-up appointment May Resume Sexual Activity: after follow-up appointment Shower/Bathe: tomorrow . Instructions / Follow-Up Instructions / Follow-Up Please follow-up with Dr. Boateng in the office in 1-2 weeks. Please call the office at [phone] to make an appointment if you do not have one already. Our office is located at [address] [place] [address] [place] [address]. Current Hospital Diet Patient's current hospital diet: Discharge Diet Recommended Diet: Regular Diet Pending Studies Studies pending at discharge: no Medical Emergencies . Who to Call and When: Medical Emergencies: If at any time you feel your situation is an emergency, please call 911 immediately. . Non-Emergent Contact Non-Emergency issues call your: Primary Care Provider, Surgeon Call Non-Emergent contact if: temperature is above 101.5, your pain is not controlled, wound has increased drainage, wound has increased redness . "Provider Documentation" section prepared by Antonia Meyers. . VTE Core Measure Inpt VTE Proph given/why not?: SCD's [place] Drug Monitoring Program Search Results: patient reviewed within database, no issues identified
[2016-08-21] MEDS ORDERED: FENTANYL CITRATE INJ 50 MCG/1 ML 2 ML VIAL ONE ×2 (10:29→11:42)
[2016-08-21] MEDS ORDERED: LIDOCAINE HCL 2% 2 ML VIAL (20MG/ML) ONE (10:29)
[2016-08-21] MEDS ORDERED: PROPOFOL IV EMULSION 10 MG/ML 20 ML VIAL IV ONE (10:29)
[2016-08-21] MEDS ORDERED: MIDAZOLAM HCL 1 MG/ML 2ML VIAL ONE (10:29)
[2016-08-21] MEDS ORDERED: DEXAMETHASONE SOD INJ 4 MG/ML VIAL ONE ×2 (10:29→10:52)
[2016-08-21] MEDS ORDERED: ROCURONIUM BROMIDE 10 MG/ML 5 ML VIAL ONE (10:29)
[2016-08-21] MEDS ORDERED: ONDANSETRON INJ 2 MG/ML 2 ML VIAL ONE (10:29)
[2016-08-21] MEDS ORDERED: BUPIVACAINE/EPINEPHRINE 0.5% MPF 1:200,000 30 ML VIAL ONE ×2 (10:30→10:32)
[2016-08-21] MEDS ORDERED: ESMOLOL HCL 10 MG/ML 10 ML VIAL ONE (11:07)
[2016-08-21] MEDS ORDERED: NEOSTIGMINE METHYLSULFATE 5 MG/5 ML SYR ONE (11:43)
[2016-08-21] MEDS ORDERED: GLYCOPYRROLATE INJ 0.2 MG/ML VIAL ONE (11:43)
[2016-08-21] MEDS ORDERED: KETOROLAC TROMETHAMINE 30 MG/ML VIAL ONE (11:43)
[2016-08-21] MEDS ORDERED: LACTATED RINGER'S 1000ML 1,000 ML IV SCH (11:44)
[2016-08-21] MEDS ORDERED: HYDROCODONE/ACETAMOPHEN 5/325MG TAB PO PRN (11:45)
[2016-08-21] MEDS ORDERED: MoRPHine SULFATE 2 MG/ML CARP IV PRN (11:45)
[2016-08-21] MEDS ORDERED: BUPIVACAINE/EPINEPHRINE 0.5% MPF 1:200,000 30 ML VIAL INJ ONE (11:49)
--- NOTE | 2016-08-21 11:54 | [facility] Operative Report ---
Operative Report Operative Date Aug 21, 2016. Pre-Operative Diagnosis chronic cholecysitis, cholelithiasis Post-Operative Diagnosis same Procedure(s) Performed lap sd Surgeon Dr. Emery Boateng Pest Control Service Technician Surgeon(s) Antonia Meyers PA-C Estimated Blood Loss 5ml Findings normal anatomy Specimens A. Gallbladder Anesthesia get Complication(s) None Disposition Recovery Room / PACU I attest to the content of the Intraoperative Record and any orders documented therein. Any exceptions are noted below.
[2016-08-21] MEDS: FENTANYL CITRATE INJ 50 MCG/1 ML 2 ML VIAL IV PRN ×4 (12:15→12:30)
--- NOTE | 2016-08-21 12:44 | Anesthesiology Progress Note ---
Anesthesia Post Op Note Date & Time Aug 21, 2016 at 12:44 Vital Signs Pain Intensity: 4 Vital Signs Past 12 Hours Date Time Temp Pulse Resp B/P (MAP) Pulse Ox O2 Delivery O2 Flow Rate FiO2 08/21/16 12:35 70 15 126/68 98 Nasal Cannula 08/21/16 12:25 67 13 129/70 100 Mask 10 08/21/16 12:15 71 14 127/67 100 Mask 10 08/21/16 12:08 36.5 90 16 130/70 99 Mask 10 08/21/16 09:29 36.7 110 18 111/59 (76) 97 Room Air Notes Mental Status: alert / awake / arousable, participated in evaluation Pt Amnestic to Procedure: Yes Nausea / Vomiting: adequately controlled Pain: adequately controlled Airway Patency, RR, SpO2: stable & adequate BP & HR: stable & adequate Hydration State: stable & adequate Anesthetic Complications: no major complications apparent
[2016-08-21 12:55] VITALS: BP 112/60; PULSE 64; TEMP 26.8; O2SAT 98
[2016-08-21 13:25] VITALS: BP 107/56; PULSE 62; O2SAT 96
--- NOTE | 2016-08-21 16:01 | OPERATIVE REPORT ---
DATE OF OPERATION: 08/21/2016 PREOPERATIVE DIAGNOSIS: Calculus cholecystitis. POSTOPERATIVE DIAGNOSIS: Same. PROCEDURE: Laparoscopic cholecystectomy. SURGEON: Dr. Boateng. OPERATIONS RECRUITER: Antonia Meyers PA-C ESTIMATED BLOOD LOSS: Approximately 5 mL. COMPLICATIONS: No immediate. ANESTHESIA: General. The patient tolerated the procedure well. OPERATIVE NOTE: After informed consent was obtained, the patient taken to the operating suite and placed in the supine position. After successful intubation, the abdomen was sterilely prepped and draped in the usual fashion. Supraumbilical incision was made with an 11 blade scalpel and carried down through the soft tissue using electrocautery. The anterior rectus fascia was opened using electrocautery and two #0 Vicryl stay sutures were placed. Peritoneum was elevated with hemostats and incised under direct vision using a Metzenbaum scissors. A finger sweep was performed. A 12 mm David trocar was placed and the abdomen was insufflated to 18 mmHg. Laparoscope was inserted and the abdomen examined 360 degrees. A subxiphoid 5-mm port and 2 right upper quadrant 5 mm ports were placed under direct vision. The patient was placed in reverse Trendelenburg position slightly airplaned to the left. The gallbladder was grasped and elevated superiorly and laterally. There were some adhesions around the neck of the gallbladder. These were taken down using primarily blunt dissection, a small amount of cautery. I then used a [place] dissector to skeletonize and delineate the cystic duct. We could see its junction with the common bile duct. It was a rather short cystic duct but nonetheless we were able to skeletonize it, clip it twice proximally and once distally and transected. In similar fashion, the cystic artery was identified, skeletonized, clipped and divided as well. The gallbladder was then removed from the gallbladder fossa intact. This was done with electrocautery. Several small bleeding points in the gallbladder fossa were controlled using electrocautery. We thoroughly irrigated the right upper quadrant. At the end of the procedure, there was adequate hemostasis and no evidence of any bile leaks. We did look on the left lobe of the liver. There was no evidence of hiatal hernia. No other gross visible pathology was seen throughout the abdominal cavity. The gallbladder was placed into an EndoCatch bag and removed from the camera port site. All the trocars were removed and the abdomen was desufflated. The fascia of the cam port was closed using 0 Vicryl in a [id number] fashion. All the wounds were irrigated and closed using 4-0 Monocryl. Marcaine was injected around them for postoperative analgesia and skin glue used as a dressing. The patient was awakened, extubated, and transferred to recovery in stable condition. I attest to the content of the Intraoperative Record and any orders documented therein. Any exception s are noted below.
== END 2016-08-21 14:30 | disposition home or self-care (01) ==
LOC: C.ACU 09:06
PROVIDERS: ATTEND Surgery
DX: K80.10 Calculus of gallbladder with chronic cholecystitis without obstruction (principal); K82.4 Cholesterolosis of gallbladder; Z68.36 Body mass index [BMI] 36.0-36.9, adult; E66.9 Obesity, unspecified; Z98.890 Other specified postprocedural states; Z87.891 Personal history of nicotine dependence; Z88.1 Allergy status to other antibiotic agents; Z82.49 Family history of ischemic heart disease and other diseases of the circulatory system; Z80.41 Family history of malignant neoplasm of ovary